=== PATIENT | male | born 2005 | race Caucasian/White ===

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

== ENCOUNTER 2024-02-05 23:27 | Emergency (ER) | payer OTHER ==
[2024-02-05 23:37] VITALS: PULSE 118; RESP 18; BMI 24.3
[2024-02-05] MEDS: ACETAMINOPHEN 160 MG/5 ML *Children Solution PO ONE (23:57)
[2024-02-06] MEDS: SODIUM CHLORIDE 0.9% 500 ML INFUS.BAG IV ONE (00:09)
[2024-02-06] MEDS ORDERED: DEXAMETHASONE SOD PHOSPHATE 10 MG/1 ML VIAL ONE (00:09)
[2024-02-06] MEDS ORDERED: KETOROLAC TROMETHAMINE 30 MG/1 ML VIAL ONE (00:09)
[2024-02-06 00:13] LABS: BASO % 0.3 % (0-2.0); EOS % 0.3 % (0-4.5); HEMATOCRIT 45.1 % (35.4-49); HEMOGLOBIN 15.3 GM/dL (11.7-16.9); LYMPH % 8.9 % (8-40); MCH 30.2 pg (25.7-33.7); MEAN CELL VOLUME 88.9 fl (80-96); MEAN PLT VOLUME 8.2 fl (7.5-11.1); MONO % 13.7 % (3.8-10.2); NEUT % 76.8 % (42.8-82.8); PLATELET COUNT 290 10^3/uL (134-434); RBC 5.07 M/mm3 (4.00-5.60); WHITE BLOOD COUNT 14.8 K/mm3 (4.0-10.0)
[2024-02-06] MEDS: KETOROLAC TROMETHAMINE 30 MG/1 ML VIAL IVPUSH ONE (00:13)
[2024-02-06] MEDS: DEXAMETHASONE SOD PHOSPHATE 10 MG/1 ML VIAL IVPUSH ONE (00:13)
[2024-02-06 00:29] LABS: THROAT:GRP A STREP NOT DETECTED (NOTDETECTED)
[2024-02-06 00:54] LABS: POTASSIUM 4.1 mmol/L (3.5-5.1)
[2024-02-06 00:56] LABS: CALCIUM 9.7 mg/dL (8.5-10.1)
[2024-02-06 00:57] LABS: ALBUMIN 4.1 g/dl (3.4-5.0); BLOOD UREA NITROGEN 12.7 mg/dL (7-18)
[2024-02-06 01:00] LABS: CREATININE 0.9 mg/dL (0.55-1.3)
[2024-02-06 01:01] LABS: BILIRUBIN,TOTAL 0.5 mg/dL (0.2-1)
[2024-02-06 01:02] LABS: TOT PROT 7.9 g/dl (6.4-8.2)
[2024-02-06 01:32] VITALS: TEMP 101
[2024-02-06 01:33] VITALS: BP 109/64
== END 2024-02-06 01:36 | disposition home or self-care (01) ==
LOC: JER 23:27
PROC: 3E033GC Introduction of Other Therapeutic Substance into Peripheral Vein, Percutaneous Approach (ICD-10-PCS; principal; 2024-02-05)
PROC: 3E0333Z Introduction of Anti-inflammatory into Peripheral Vein, Percutaneous Approach (ICD-10-PCS; 2024-02-05)
DX: J02.9 Acute pharyngitis, unspecified (principal); B34.9 Viral infection, unspecified; Z20.822 Contact with and (suspected) exposure to COVID-19
CPT/HCPCS: 0241U-QW; 36415; 71045-TC-FY; 80053; 80177; 85025; 87651; 99284-25; J1100

== ENCOUNTER 2024-02-07 15:16 | Emergency (ER) | payer OTHER ==
[2024-02-07 15:33] VITALS: BP 125/69; PULSE 72; RESP 19; TEMP 99.3; BMI 22.8
[2024-02-07] MEDS ORDERED: LIDOCAINE VISCOUS 2% ORAL/TOP 15 ML UNIT-DOSE CUP ONE (16:53)
[2024-02-07] MEDS: DEXAMETHASONE SOD PHOSPHATE 10 MG/1 ML VIAL PO ONE (16:58)
[2024-02-07] MEDS ORDERED: IBUPROFEN 600 MG TABLET (FP) PO ONE (17:02)
[2024-02-07] MEDS: LIDOCAINE VISCOUS 2% ORAL/TOP 15 ML UNIT-DOSE CUP MM ONE (17:18)
[2024-02-07] MEDS: IBUPROFEN 600 MG TABLET (FP) PO ONE (17:18)
[2024-02-07 18:45] LABS: HIV INTERPRETATION NEGATIVE (NEGATIVE)
== END 2024-02-07 18:21 | disposition home or self-care (01) ==
LOC: JER 15:16
DX: J02.9 Acute pharyngitis, unspecified (principal); R50.9 Fever, unspecified
CPT/HCPCS: 36415; 86308; 86803; 87389; 99283-25